=== PATIENT | female | born 1970 | race Hispanic/Latino ===

== ENCOUNTER → 2017-10-12 | Outpatient (CLI) | payer MEDICAID ==
[~2017-10-12] MED LIST: ATOR40TA69 PO; CYCL5TAB PO; DULO30CA2 PO; ENAL5TAB PO; FURO20TA4 PO; METF10004 PO; METO25TA3 PO
== END | disposition home or self-care (01) ==
LOC: SHCH 10:41
PROVIDERS: ATTEND Internal Medicine Cardiovascular Disease
DX: I10 Essential (primary) hypertension (principal); I20.9 Angina pectoris, unspecified
CPT/HCPCS: 93306

== ENCOUNTER 2018-07-04 10:48 | Emergency (ER) | payer SELFPAY ==
[~2018-07-04 10:48] MED LIST changes: +METF-446 PO; -METF10004 PO
[2018-07-04 12:13] LABS: BASOPHILS % (AUTO) 0.5 % (0.0-5.0); EOSINOPHILS % (AUTO) 1.5 % (0.0-8.0); LYMPHOCYTES % (AUTO) 31.8 % (21.0-51.0); MEAN CORPUSCULAR HEMOGLOBIN 27.8 pg (27.0-33.0); MEAN CORPUSCULAR HGB CONC 33.2 g/dL (32.0-36.0); MEAN CORPUSCULAR VOLUME 83.8 fL (79-99); MONOCYTES % (AUTO) 7.8 % (3.0-13.0); NEUTROPHILS % (AUTO) 58.4 % (40.0-77.0); PLATELET COUNT (AUTO) 278 K/uL (130-400); RED BLOOD CELL COUNT(AUTO) 4.77 MIL/uL (4.00-5.50); WHITE BLOOD COUNT (AUTO) 8.4 K/uL (4.8-10.8)
[2018-07-04 12:34] LABS: CREATININE 0.7 mg/dL (0.5-1.5); POTASSIUM 3.8 mmol/L (3.5-5.1)
[2018-07-04 12:38] LABS: ALBUMIN 3.3 g/dL (3.5-5.0); BILIRUBIN,TOTAL 0.4 mg/dL (0.2-1.0)
[2018-07-04] MEDS ORDERED: KETOROLAC TROMETHAMINE 30MG/ML ONE (12:44)
[2018-07-04] MEDS ORDERED: DEXAMETHASONE SOD PHOSPHATE 4 MG/ML 1ML VIAL ONE (13:33)
== END 2018-07-04 14:02 | disposition home or self-care (01) ==
LOC: EDH 10:48
DX: M79.605 Pain in left leg (principal); E11.9 Type 2 diabetes mellitus without complications; I10 Essential (primary) hypertension; I25.10 Atherosclerotic heart disease of native coronary artery without angina pectoris; Z79.84 Long term (current) use of oral hypoglycemic drugs; Z79.899 Other long term (current) drug therapy; Z90.49 Acquired absence of other specified parts of digestive tract; Z98.890 Other specified postprocedural states
CPT/HCPCS: 36415; 72131; 80053; 85025; 85378; 93971; 96374; 96375; 99285; J1100; J1885

== ENCOUNTER 2018-10-06 14:47 | Emergency (ER) | payer SELFPAY ==
[2018-10-06 16:37] LABS: APPEARANCE,URINE Clear (CLEAR); BILIRUBIN,URINE Negative (NEGATIVE); COLOR,URINE Yellow (YELLOW); GLUCOSE, URINE (UA) Negative (NEGATIVE); KETONES,URINE Negative (NEGATIVE); LEUKOCYTE ESTERASE ,URINE Negative (NEGATIVE); NITRATE,URINE Negative (NEGATIVE); OCCULT BLOOD,URINE Negative (NEGATIVE); PH,URINE 5.5 (5.0-8.0); PROTEIN,URINE Negative (NEGATIVE); UROBILINOGEN,URINE 0.2 mg/dL (0.2-1.0)
[2018-10-06 17:14] LABS: BASOPHILS % (AUTO) 0.8 % (0.0-5.0); EOSINOPHILS % (AUTO) 2.5 % (0.0-8.0); HEMATOCRIT 41.6 % (36-48); LYMPHOCYTES % (AUTO) 28.5 % (21.0-51.0); MEAN CORPUSCULAR HEMOGLOBIN 27.4 pg (27.0-33.0); MEAN CORPUSCULAR HGB CONC 32.8 g/dL (32.0-36.0); MEAN CORPUSCULAR VOLUME 83.6 fL (79-99); MONOCYTES % (AUTO) 8.2 % (3.0-13.0); PLATELET COUNT (AUTO) 255 K/uL (130-400); RED BLOOD CELL COUNT(AUTO) 4.97 MIL/uL (4.00-5.50); RED CELL DISTRIBUTION WIDTH 13.7 % (11.0-15.5); WHITE BLOOD COUNT (AUTO) 7.7 K/uL (4.8-10.8)
[2018-10-06 17:24] LABS: CREATININE 0.7 mg/dL (0.5-1.5); POTASSIUM 4.1 mmol/L (3.5-5.1)
[2018-10-06 17:31] LABS: ALBUMIN 3.4 g/dL (3.5-5.0); BILIRUBIN,TOTAL 0.2 mg/dL (0.2-1.0); TOTAL PROTEIN, SERUM 8.3 g/dL (6.0-8.3)
== END 2018-10-06 18:03 | disposition home or self-care (01) ==
LOC: EDH 14:47
DX: R10.11 Right upper quadrant pain (principal); I10 Essential (primary) hypertension; E11.9 Type 2 diabetes mellitus without complications; I25.810 Atherosclerosis of coronary artery bypass graft(s) without angina pectoris; Z90.49 Acquired absence of other specified parts of digestive tract
CPT/HCPCS: 36415; 80053; 81003; 83690; 85025

== ENCOUNTER 2019-03-05 19:14 | Emergency (ER) | payer OTHER ==
[2019-03-05] MEDS ORDERED: ASPIRIN 325 MG TABLET ONE (19:31)
[2019-03-05 20:17] LABS: BASOPHILS % (AUTO) 1.4 % (0.0-5.0); HEMATOCRIT 38.1 % (36-48); LYMPHOCYTES % (AUTO) 31.5 % (21.0-51.0); MEAN CORPUSCULAR HEMOGLOBIN 27.5 pg (27.0-33.0); MEAN CORPUSCULAR HGB CONC 33.2 g/dL (32.0-36.0); MEAN CORPUSCULAR VOLUME 82.8 fL (79-99); MONOCYTES % (AUTO) 6.2 % (3.0-13.0); NEUTROPHILS % (AUTO) 59.9 % (40.0-77.0); NUCLEATED RED BLOOD CELLS 0.1 % (0.0-0.19); PLATELET COUNT (AUTO) 253 K/uL (130-400); RED CELL DISTRIBUTION WIDTH 14.8 % (11.0-15.5); WHITE BLOOD COUNT (AUTO) 10.3 K/uL (4.8-10.8)
[2019-03-05 20:19] LABS: APPEARANCE,URINE Clear (CLEAR); BILIRUBIN,URINE Negative (NEGATIVE); COLOR,URINE Yellow (YELLOW); GLUCOSE, URINE (UA) Negative (NEGATIVE); KETONES,URINE Negative (NEGATIVE); LEUKOCYTE ESTERASE ,URINE Negative (NEGATIVE); NITRATE,URINE Negative (NEGATIVE); OCCULT BLOOD,URINE Negative (NEGATIVE); PH,URINE 6.5 (5.0-8.0); PROTEIN,URINE Negative (NEGATIVE); UROBILINOGEN,URINE 0.2 mg/dL (0.2-1.0)
[2019-03-05 20:26] LABS: CREATININE 0.8 mg/dL (0.5-1.5); INR 0.91 (0.85-1.15); PARTIAL THROMBOPLASTIN TIME 19.4 SEC (26.3-35.5); POTASSIUM 3.6 mmol/L (3.5-5.1); PROTHROMBIN TIME 9.6 SEC (9.6-11.6)
[2019-03-05 20:36] LABS: ALBUMIN 3.2 g/dL (3.5-5.0); BILIRUBIN,TOTAL 0.4 mg/dL (0.2-1.0)
[2019-03-05 20:46] LABS: B-TYPE NATRIURETIC PEPTIDE 57 pg/mL (0-100)
[2019-03-05] MEDS ORDERED: MORPHINE SULFATE 4 MG/1ML SYG ONE (21:51)
[2019-03-05] MEDS ORDERED: ONDANSETRON HCL 4 MG/2 ML VIAL ONE (21:51)
[2019-03-05] MEDS ORDERED: SODIUM CHLORIDE 0.9% 1000ML 1,000 ML IV ONE (21:52)
== END 2019-03-06 00:38 | disposition home or self-care (01) ==
LOC: EDH 19:14
DX: R10.11 Right upper quadrant pain (principal); K76.0 Fatty (change of) liver, not elsewhere classified; E11.9 Type 2 diabetes mellitus without complications; I25.10 Atherosclerotic heart disease of native coronary artery without angina pectoris; I10 Essential (primary) hypertension; Z90.49 Acquired absence of other specified parts of digestive tract
CPT/HCPCS: 36415; 71045; 74176; 80053; 81003; 82550; 83690; 83874; 83880; 84484 ×2; 85025; 85610; 85730; 93005 ×2; 96374; 96375; 99285; J2270; J2405; J7030

== ENCOUNTER 2019-10-11 00:10 | Emergency (ER) | payer OTHER ==
[2019-10-11] MEDS ORDERED: ASPIRIN 325 MG TABLET ONE (00:42)
[2019-10-11 00:50] LABS: POTASSIUM 4.4 mmol/L (3.5-5.1)
[2019-10-11 00:53] LABS: BASOPHILS % (AUTO) 0.4 % (0.0-5.0); EOSINOPHILS % (AUTO) 1.2 % (0.0-8.0); HEMATOCRIT 45.1 % (36-48); MEAN CORPUSCULAR HEMOGLOBIN 27.9 pg (27.0-33.0); MEAN CORPUSCULAR HGB CONC 32.2 g/dL (32.0-36.0); MEAN CORPUSCULAR VOLUME 86.9 fL (79-99); MONOCYTES % (AUTO) 7.1 % (3.0-13.0); NEUTROPHILS % (AUTO) 40.1 % (40.0-77.0); PLATELET COUNT (AUTO) 329 K/uL (130-400); RED BLOOD CELL COUNT(AUTO) 5.19 MIL/uL (4.00-5.50); RED CELL DISTRIBUTION WIDTH 12.7 % (11.0-15.5); WHITE BLOOD COUNT (AUTO) 10.5 K/uL (4.8-10.8)
[2019-10-11 00:56] LABS: ALBUMIN 3.7 g/dL (3.5-5.0); BILIRUBIN,TOTAL 0.2 mg/dL (0.2-1.0); TOTAL PROTEIN, SERUM 7.8 g/dL (6.0-8.3)
[2019-10-11 01:09] LABS: INR 0.91 (0.85-1.15); PROTHROMBIN TIME 9.6 SEC (9.6-11.6)
[2019-10-11 01:20] LABS: B-TYPE NATRIURETIC PEPTIDE 106 pg/mL (0-100)
[2019-10-11] MEDS ORDERED: LORAZEPAM 2 MG/ML 1 ML VIAL ONE (02:21)
== END 2019-10-11 04:28 | disposition home or self-care (01) ==
LOC: EDH 00:10
DX: M54.9 Dorsalgia, unspecified (principal); R07.89 Other chest pain; I25.10 Atherosclerotic heart disease of native coronary artery without angina pectoris; Z90.49 Acquired absence of other specified parts of digestive tract; Z98.890 Other specified postprocedural states; I50.9 Heart failure, unspecified
CPT/HCPCS: 36415; 71045; 80053; 82550; 83880; 84484 ×2; 85025; 85610; 85730; 93005 ×2; 96374; 99285; J2060

== ENCOUNTER 2019-12-19 06:07 | Inpatient (IN) | payer OTHER ==
[~2019-12-19] VITALS: Ht 162.6 cm; Wt 103.6 kg
[2019-12-19 06:55] LABS: BASOPHILS % (AUTO) 0.4 % (0.0-5.0); EOSINOPHILS % (AUTO) 0.8 % (0.0-8.0); HEMATOCRIT 38.1 % (36-48); MEAN CORPUSCULAR HEMOGLOBIN 27.2 pg (27.0-33.0); MONOCYTES % (AUTO) 10.6 % (3.0-13.0); NEUTROPHILS % (AUTO) 78.6 % (40.0-77.0); PLATELET COUNT (AUTO) 238 K/uL (130-400); RED BLOOD CELL COUNT(AUTO) 4.48 MIL/uL (4.00-5.50); RED CELL DISTRIBUTION WIDTH 13.2 % (11.0-15.5)
[2019-12-19] MEDS ORDERED: ACETAMINOPHEN EXTRA STRENGTH 500 MG TABLET ONE (06:55)
[2019-12-19] MEDS ORDERED: CEFTRIAXONE SODIUM 2 GM VIAL ONE (06:55)
[2019-12-19] MEDS ORDERED: SODIUM CHLORIDE 0.9% 1000ML 2,000 ML IV ONE (06:55)
[2019-12-19 07:02] LABS: CARBON DIOXIDE 28 mmol/L (21-32); CHLORIDE 99 mmol/L (101-111); CREATININE 0.9 mg/dL (0.5-1.5); GLOMERULAR FILTR. RATE CALC 70 mL/min (>60); GLUCOSE,RANDOM 157 mg/dL (70-105); POTASSIUM 3.5 mmol/L (3.5-5.1); SODIUM SERUM 135 mmol/L (136-145); UREA NITROGEN, BLOOD 8 mg/dL (7-18)
[2019-12-19 07:10] LABS: APPEARANCE,URINE CLEAR (CLEAR); BILIRUBIN,URINE NEGATIVE (NEGATIVE); COLOR,URINE YELLOW (YELLOW); GLUCOSE, URINE (UA) NEGATIVE (NEGATIVE); KETONES,URINE NEGATIVE (NEGATIVE); LEUKOCYTE ESTERASE ,URINE NEGATIVE (NEGATIVE); NITRATE,URINE NEGATIVE (NEGATIVE); OCCULT BLOOD,URINE NEGATIVE (NEGATIVE); PROTEIN,URINE NEGATIVE (NEGATIVE); UROBILINOGEN,URINE 0.2 mg/dL (0.2-1.0)
[2019-12-19 07:16] LABS: ALANINE AMINOTRANSFERASE 20 U/L (12-78); ALBUMIN 3.2 g/dL (3.5-5.0); ASPARTATE AMINOTRANSFERASE 16 U/L (10-37); BILIRUBIN,TOTAL 0.3 mg/dL (0.2-1.0); CREATINE KINASE, TOTAL 58 U/L (21-232); MYOGLOBIN 43 ng/mL (10-92); TOTAL PROTEIN, SERUM 7.8 g/dL (6.0-8.3); TROPONIN I < 0.04 ng/mL (0.00-0.06)
[2019-12-19 07:19] LABS: INR 0.92 (0.85-1.15); PARTIAL THROMBOPLASTIN TIME 28.1 SEC (26.3-35.5)
[2019-12-19] MEDS ORDERED: METHYLPREDNISOLONE SOD SUCC 125MG/2ML VIAL ONE (07:23)
[2019-12-19] MEDS ORDERED: ONDANSETRON HCL 4 MG/2 ML VIAL IVP PRN (11:00)
[2019-12-19] MEDS ORDERED: SODIUM CHLORIDE 0.9% 1000ML 1,000 ML IV SCH (11:00)
[2019-12-19] MEDS ORDERED: METHYLPREDNISOLONE SOD SUCC 125MG/2ML VIAL IVP SCH (11:00)
[2019-12-19] MEDS ORDERED: FAMOTIDINE 20MG TAB 20 MG TAB ONE (11:38)
[2019-12-19] MEDS ORDERED: SODIUM CHLORIDE 0.9% 1000ML 1,000 ML IV ONE (11:39)
[2019-12-19] MEDS ORDERED: OSELTAMIVIR PHOSPHATE 75 MG CAP ONE ×2 (11:39→23:44)
[2019-12-19] MEDS ORDERED: AZITHROMYCIN 500MG+NS 250ML 250 ML IV ONE (11:55)
--- NOTE | 2019-12-19 13:05 | NUR ---
INITIAL SW met with patient and spouse. Patient lives with spouse, Lee Duran, [phone]. No home services. DME: glucometer (uses insulin). Patient is able to complete ADL's independently and drives. She is presently employed client service supervisor. PCP is Dr. Jeffrey Duran. Pharmacy is [facility] located on [address] in [place]. DCP is home. Addendum: 12/19/19 at 1307 by DRAGAN WOOD SS Amended: Links added. Addendum: 12/19/19 at 1647 by DRAGAN WOOD SS Information above is for another patient. Please disregard.
[2019-12-19] MEDS ORDERED: IPRATROPIUM/ALBUTEROL SULFATE 3 ML SOLUTION IH ONE (13:32)
[2019-12-19] MEDS: IPRATROPIUM/ALBUTEROL SULFATE 3 ML SOLUTION IH SCH ×3 (13:34→21:49)
[2019-12-19] MEDS ORDERED: ACETAMINOPHEN 325 MG TAB ONE (14:54)
[2019-12-19] MEDS ORDERED: METHYLPREDNISOLONE SOD SUCC 40MG/ML 1ML ONE ×2 (15:11→23:43)
[2019-12-19] MEDS ORDERED: INSULIN HUMULIN R 100 UNIT/ML 3ML ONE ×2 (18:07→22:32)
[2019-12-19] MEDS: METHYLPREDNISOLONE SOD SUCC 125MG/2ML VIAL IVP SCH (19:00)
[2019-12-19] MEDS: OSELTAMIVIR PHOSPHATE 75 MG CAP PO SCH (21:00)
[2019-12-20] MEDS: IPRATROPIUM/ALBUTEROL SULFATE 3 ML SOLUTION IH SCH ×6 (02:00→22:39)
[2019-12-20] MEDS: METHYLPREDNISOLONE SOD SUCC 125MG/2ML VIAL IVP SCH ×3 (03:00→19:00)
[2019-12-20 05:02] LABS: HEMOGLOBIN A1C 6.9 % (4.0-6.0)
[2019-12-20] MEDS ORDERED: SODIUM CHLORIDE 0.9% 1000ML 1,000 ML IV ONE (05:09)
[2019-12-20] MEDS ORDERED: IPRATROPIUM/ALBUTEROL SULFATE 3 ML SOLUTION IH ONE ×3 (06:11→13:27)
[2019-12-20 06:39] LABS: HEMATOCRIT 36.6 % (36-48); LYMPHOCYTES % (AUTO) 12.3 % (21.0-51.0); MEAN CORPUSCULAR HEMOGLOBIN 27.4 pg (27.0-33.0); MEAN CORPUSCULAR HGB CONC 31.7 g/dL (32.0-36.0); MEAN CORPUSCULAR VOLUME 86.3 fL (79-99); MONOCYTES % (AUTO) 6.2 % (3.0-13.0); NEUTROPHILS % (AUTO) 80.8 % (40.0-77.0); PLATELET COUNT (AUTO) 243 K/uL (130-400); RED BLOOD CELL COUNT(AUTO) 4.24 MIL/uL (4.00-5.50); RED CELL DISTRIBUTION WIDTH 13.6 % (11.0-15.5); WHITE BLOOD COUNT (AUTO) 7.2 K/uL (4.8-10.8)
[2019-12-20 06:48] LABS: CREATININE 0.7 mg/dL (0.5-1.5); POTASSIUM 3.8 mmol/L (3.5-5.1)
[2019-12-20] MEDS ORDERED: OSELTAMIVIR PHOSPHATE 75 MG CAP ONE ×2 (08:44→20:17)
[2019-12-20] MEDS ORDERED: FAMOTIDINE 20MG TAB 20 MG TAB ONE (08:44)
[2019-12-20] MEDS ORDERED: METHYLPREDNISOLONE SOD SUCC 40MG/ML 1ML ONE ×2 (08:44→20:16)
[2019-12-20] MEDS ORDERED: INSULIN HUMULIN R 100 UNIT/ML 3ML ONE ×3 (08:45→18:48)
[2019-12-20] MEDS: RANITIDINE HCL 15 MG/1 ML PO SCH ×2 (09:00→20:31)
[2019-12-20] MEDS: OSELTAMIVIR PHOSPHATE 75 MG CAP PO SCH ×2 (09:00→20:31)
[2019-12-20] MEDS: AZITHROMYCIN 500MG+NS 250ML 250 ML IV SCH (11:45)
[2019-12-20] MEDS ORDERED: AZITHROMYCIN 500MG+NS 250ML 250 ML IV ONE (12:09)
--- NOTE | 2019-12-20 14:22 | NUR ---
INITIAL ASSESSMENT Patient lives with spouse, Jack Duran, [phone]. No home services or DME. Patient states she does need help with ADL's due to problem with her right arm but is able to drive. PCP is Dr. Jared Valencia at [facility]. Pharmacy is [facility] located in [place]. DCP is home. Patient has no insurance or benefits. She a [place] citizen and has worked in the [place]. Patient was provided with community resources for post hospitalization follow up. Patient was also provided with Good RX card for prescriptions and educated on [facility] $4 medication program and [facility] $5 medication program. Patient is being assisted by [employer] for financial matters. Addendum: 12/20/19 at 1425 by DRAGAN WOOD SS Amended: Links added.
[2019-12-20] MEDS ORDERED: AEC81 PO (20:01)
[2019-12-20] MEDS ORDERED: ATOR40TA69 PO (20:01)
[2019-12-20] MEDS ORDERED: NITR0.4T50 SL (20:01)
[2019-12-20] MEDS ORDERED: ACETAMINOPHEN 325 MG TAB ONE (20:16)
--- NOTE | 2019-12-20 23:25 | NUR ---
PATIENT ARRIVED TO ROOM. ORIENTATED TO ROOM AND CALL GILBERT, PATIENT REQUESTED TO SHOWER BEFORE MONITOR PUT IN PLACE. DOOR CORE ASSEMBLER NOTIFIED OF PATIENT'S ARRIVAL. PATIENT DENIES ANY COMPLAINTS OF PAIN OR DISCOMFORT. CALL GILBERT WITHIN REACH.
[2019-12-20 23:32] VITALS: BP 137/66
[2019-12-20 23:59] VITALS: BP 134/67
[2019-12-21] MEDS ORDERED: SODIUM CHLORIDE 3% FOR INHALATION 4 ML/AMP VIAL.NEB IH ONE (01:47)
[2019-12-21] MEDS: IPRATROPIUM/ALBUTEROL SULFATE 3 ML SOLUTION IH SCH ×6 (01:54→21:40)
[2019-12-21] MEDS: METHYLPREDNISOLONE SOD SUCC 125MG/2ML VIAL IVP SCH ×2 (03:13→12:24)
[2019-12-21] MEDS ORDERED: GLUCAGON 1MG KIT 1 MG ML IM PRN (03:30)
[2019-12-21] MEDS ORDERED: DEXTROSE 50%-WATER 50 ML DISP.SYRIN IV PRN (03:30)
[2019-12-21 03:59] VITALS: BP 109/51
[2019-12-21] MEDS: INSULIN R PO SS1 SQ SCH ×4 (06:35→21:49)
[2019-12-21 08:01] VITALS: BP 119/74
--- NOTE | 2019-12-21 08:10 | NUR ---
ENCOUNTERED PATIENT LAYING ON BED IN A SEMI-CARVAJAL'S POSITION WITH O2 AT 2L PER NASAL CANNULA. SHE VOICED THAT SHE ONLY GETS SHORT OF BREATH ONCE IN A WHILE AND MOST ESPECIALLY WHEN SHE AMBULATES. FULL ASSESSMENT DONE. PATIENT IS KEPT ON DROPLET ISOLATION. PLAN OF CARE DISCUSSED WITH PATIENT. CALL LIGHT WITHIN REACH. INSTRUCTED TO CALL FOR ASSISTANCE.
[2019-12-21] MEDS: RANITIDINE HCL 15 MG/1 ML PO SCH ×2 (09:22→21:49)
[2019-12-21] MEDS: OSELTAMIVIR PHOSPHATE 75 MG CAP PO SCH ×2 (09:22→21:49)
[2019-12-21 12:05] VITALS: BP 124/71
[2019-12-21] MEDS: AZITHROMYCIN 500MG+NS 250ML 250 ML IV SCH (12:21)
[2019-12-21] MEDS: GUAIFENESIN-DM 200/20 MG 10 ML PO SCH ×2 (12:21→17:31)
[2019-12-21] MEDS: FUROSEMIDE 10 MG/ML 2ML VIAL IV SCH (15:37)
[2019-12-21 16:33] VITALS: BP 117/68
[2019-12-21 19:46] VITALS: BP 118/70
[2019-12-21] MEDS: METHYLPREDNISOLONE SOD SUCC 40MG/ML 1ML IVP SCH (21:48)
[2019-12-21 23:41] VITALS: BP 146/79
[2019-12-22] MEDS: GUAIFENESIN-DM 200/20 MG 10 ML PO SCH ×4 (00:02→16:48)
[2019-12-22] MEDS: IPRATROPIUM/ALBUTEROL SULFATE 3 ML SOLUTION IH SCH ×6 (01:19→21:43)
[2019-12-22 03:53] LABS: BASOPHILS % (AUTO) 0.1 % (0.0-5.0); HEMATOCRIT 37.3 % (36-48); LYMPHOCYTES % (AUTO) 11.4 % (21.0-51.0); MEAN CORPUSCULAR HEMOGLOBIN 27.8 pg (27.0-33.0); MEAN CORPUSCULAR HGB CONC 31.6 g/dL (32.0-36.0); MONOCYTES % (AUTO) 3.3 % (3.0-13.0); NEUTROPHILS % (AUTO) 84.5 % (40.0-77.0); PLATELET COUNT (AUTO) 264 K/uL (130-400); RED BLOOD CELL COUNT(AUTO) 4.24 MIL/uL (4.00-5.50); WHITE BLOOD COUNT (AUTO) 10.8 K/uL (4.8-10.8)
[2019-12-22 04:00] VITALS: BP 109/75
[2019-12-22] MEDS: FUROSEMIDE 10 MG/ML 2ML VIAL IV SCH ×2 (06:21→16:48)
[2019-12-22] MEDS: INSULIN R PO SS1 SQ SCH ×4 (06:22→21:44)
[2019-12-22 07:00] VITALS: BP 119/65
[2019-12-22] MEDS: METHYLPREDNISOLONE SOD SUCC 40MG/ML 1ML IVP SCH (08:56)
[2019-12-22] MEDS: OSELTAMIVIR PHOSPHATE 75 MG CAP PO SCH ×2 (08:56→21:23)
[2019-12-22] MEDS: RANITIDINE HCL 15 MG/1 ML PO SCH ×2 (08:56→21:23)
[2019-12-22 11:00] VITALS: BP 122/62
[2019-12-22] MEDS: AZITHROMYCIN 500MG+NS 250ML 250 ML IV SCH (11:19)
[2019-12-22] MEDS: CEFTRIAXONE SODIUM 500 MG VIAL IV SCH (11:38)
[2019-12-22 15:55] VITALS: BP 118/51
--- NOTE | 2019-12-22 18:50 | NUR ---
DR. Gan AND DR. RDZ SAW PATIENT TODAY. PATIENT VERBALIZED SHE FEELS BETTER BUT I INFORMED PULMO THAT SHE IS STILL WHEEZING. MD INFORMED PATIENT THAT SHE WILL HAVE TO STAY IN HOSPITAL FOR A COUPLE MORE DAYS. HE PLANS TO INCREASE PATIENT'S SOLUMEDROL.
[2019-12-22 19:30] VITALS: BP 115/84
[2019-12-22] MEDS: METHYLPREDNISOLONE SOD SUCC 125MG/2ML VIAL IVP SCH (21:23)
[2019-12-22] MEDS: ACETAMINOPHEN 325 MG TAB PO PRN (21:46)
[2019-12-23] VITALS (7 sets, daily range): BP systolic 105–140; BP diastolic 54–74
[2019-12-23] MEDS: IPRATROPIUM/ALBUTEROL SULFATE 3 ML SOLUTION IH SCH ×6 (01:20→22:11)
[2019-12-23 04:37] LABS: BASOPHILS % (AUTO) 0.1 % (0.0-5.0); HEMATOCRIT 39.9 % (36-48); LYMPHOCYTES % (AUTO) 12.2 % (21.0-51.0); MEAN CORPUSCULAR HEMOGLOBIN 27.5 pg (27.0-33.0); MEAN CORPUSCULAR HGB CONC 31.8 g/dL (32.0-36.0); MEAN CORPUSCULAR VOLUME 86.4 fL (79-99); MONOCYTES % (AUTO) 1.8 % (3.0-13.0); NEUTROPHILS % (AUTO) 85.2 % (40.0-77.0); PLATELET COUNT (AUTO) 286 K/uL (130-400); RED BLOOD CELL COUNT(AUTO) 4.62 MIL/uL (4.00-5.50); RED CELL DISTRIBUTION WIDTH 13.6 % (11.0-15.5)
[2019-12-23 04:58] LABS: CREATININE 0.9 mg/dL (0.5-1.5)
[2019-12-23] MEDS: FUROSEMIDE 10 MG/ML 2ML VIAL IV SCH ×2 (06:56→17:12)
[2019-12-23] MEDS: GUAIFENESIN-DM 200/20 MG 10 ML PO SCH ×4 (06:56→17:11)
[2019-12-23] MEDS: INSULIN R PO SS1 SQ SCH ×4 (07:03→23:23)
--- NOTE | 2019-12-23 09:00 | NUR ---
AM ASSESSMENT PT LAYING IN BED, HOB ELEVATED 30 DEGREES, RESTING. A/O X 3. NO SOB. NO DISTRESS NOTED. O2 NC @ 2L REMOVED BY PT. SINCE NC REMOVED PT HAS BEEN REMOVED BEEN ON RA. DENIES CHEST PAIN OR DISCOMFORT. DENIES PALPITATIONS. TELE: SR. DENIES N/V AND/OR DIARRHEA. RT HAND/ARM SIDED WEAKNESS. UP AD BONITA. INSTRUCTED TO CALL FOR ASSISTANCE. CALL VLADIMIR W/IN REACH.
[2019-12-23] MEDS: AZITHROMYCIN 500MG+NS 250ML 250 ML IV SCH (09:59)
[2019-12-23] MEDS: OSELTAMIVIR PHOSPHATE 75 MG CAP PO SCH ×2 (09:59→21:05)
[2019-12-23] MEDS: METHYLPREDNISOLONE SOD SUCC 125MG/2ML VIAL IVP SCH ×2 (09:59→21:05)
[2019-12-23] MEDS: RANITIDINE HCL 15 MG/1 ML PO SCH ×2 (09:59→21:05)
[2019-12-23] MEDS: ACETAMINOPHEN 325 MG TAB PO PRN ×2 (10:14→21:11)
[2019-12-23] MEDS: CEFTRIAXONE SODIUM 500 MG VIAL IV SCH (10:21)
[2019-12-23] MEDS: SODIUM CHLORIDE 3% FOR INHALATION 4 ML/AMP VIAL.NEB IH SCH (13:37)
[2019-12-24] MEDS: GUAIFENESIN-DM 200/20 MG 10 ML PO SCH ×5 (00:52→23:15)
[2019-12-24] MEDS: IPRATROPIUM/ALBUTEROL SULFATE 3 ML SOLUTION IH SCH ×5 (02:29→23:09)
[2019-12-24 03:48] VITALS: BP 112/61
[2019-12-24 04:27] LABS: BASOPHILS % (AUTO) 0.2 % (0.0-5.0); HEMATOCRIT 41.2 % (36-48); LYMPHOCYTES % (AUTO) 15.4 % (21.0-51.0); MEAN CORPUSCULAR HEMOGLOBIN 27.6 pg (27.0-33.0); MEAN CORPUSCULAR HGB CONC 31.8 g/dL (32.0-36.0); MEAN CORPUSCULAR VOLUME 86.7 fL (79-99); MONOCYTES % (AUTO) 3.4 % (3.0-13.0); NEUTROPHILS % (AUTO) 78.9 % (40.0-77.0); PLATELET COUNT (AUTO) 301 K/uL (130-400); RED BLOOD CELL COUNT(AUTO) 4.75 MIL/uL (4.00-5.50); RED CELL DISTRIBUTION WIDTH 13.4 % (11.0-15.5)
[2019-12-24] MEDS: FUROSEMIDE 10 MG/ML 2ML VIAL IV SCH ×2 (05:40→17:23)
[2019-12-24] MEDS: INSULIN R PO SS1 SQ SCH ×4 (06:24→23:15)
[2019-12-24] MEDS: SODIUM CHLORIDE 3% FOR INHALATION 4 ML/AMP VIAL.NEB IH SCH (07:29)
[2019-12-24 07:30] VITALS: BP 111/62
[2019-12-24] MEDS: OSELTAMIVIR PHOSPHATE 75 MG CAP PO SCH (10:43)
[2019-12-24] MEDS: RANITIDINE HCL 15 MG/1 ML PO SCH ×2 (10:43→20:12)
[2019-12-24] MEDS: METHYLPREDNISOLONE SOD SUCC 125MG/2ML VIAL IVP SCH (10:44)
[2019-12-24] MEDS: AZITHROMYCIN 500MG+NS 250ML 250 ML IV SCH (10:44)
[2019-12-24] MEDS ORDERED: CEFTRIAXONE SODIUM 1 GM IV SCH (10:49)
[2019-12-24 11:37] VITALS: BP 138/73
[2019-12-24] MEDS ORDERED: PREDNISONE 20 MG TABLET PO SCH (14:55)
[2019-12-24 15:50] VITALS: BP 125/68
[2019-12-24] MEDS ORDERED: IPRATROPIUM/ALBUTEROL SULFATE 3 ML SOLUTION IH SCH (18:00)
[2019-12-24 19:51] VITALS: BP 128/75
[2019-12-24 23:44] VITALS: BP 114/64
[2019-12-25 03:39] VITALS: BP 118/64
[2019-12-25 03:43] LABS: BASOPHILS % (AUTO) 0.2 % (0.0-5.0); HEMATOCRIT 41.8 % (36-48); LYMPHOCYTES % (AUTO) 17.2 % (21.0-51.0); MEAN CORPUSCULAR HEMOGLOBIN 27.7 pg (27.0-33.0); MEAN CORPUSCULAR HGB CONC 32.3 g/dL (32.0-36.0); MEAN CORPUSCULAR VOLUME 85.7 fL (79-99); MONOCYTES % (AUTO) 4.9 % (3.0-13.0); NEUTROPHILS % (AUTO) 75.8 % (40.0-77.0); PLATELET COUNT (AUTO) 343 K/uL (130-400); RED BLOOD CELL COUNT(AUTO) 4.88 MIL/uL (4.00-5.50); RED CELL DISTRIBUTION WIDTH 13.3 % (11.0-15.5); WHITE BLOOD COUNT (AUTO) 16.2 K/uL (4.8-10.8)
[2019-12-25 04:03] LABS: ALBUMIN 3.1 g/dL (3.5-5.0); BILIRUBIN,TOTAL 0.3 mg/dL (0.2-1.0); CREATININE 0.8 mg/dL (0.5-1.5); POTASSIUM 4.2 mmol/L (3.5-5.1); TOTAL PROTEIN, SERUM 7.7 g/dL (6.0-8.3)
[2019-12-25] MEDS: INSULIN R PO SS1 SQ SCH ×2 (06:28→11:30)
[2019-12-25] MEDS: FUROSEMIDE 10 MG/ML 2ML VIAL IV SCH (06:28)
[2019-12-25] MEDS: GUAIFENESIN-DM 200/20 MG 10 ML PO SCH ×2 (06:29→11:15)
[2019-12-25] MEDS: IPRATROPIUM/ALBUTEROL SULFATE 3 ML SOLUTION IH SCH ×2 (06:51→11:13)
[2019-12-25 07:14] VITALS: BP 114/62
[2019-12-25] MEDS: RANITIDINE HCL 15 MG/1 ML PO SCH (07:43)
--- NOTE | 2019-12-25 07:45 | NUR ---
ASSESSMENT PT IS AAOX3 DENIES CP DENIES SOB DENIES NV NO COMPLAINTS RESTING IN BED. BREATHING PATTERN IS EVEN AND UNLABORED. NO VISIBLE SIGNS OF DISTRESS NOTED, CALL LIGHT WITHIN REACH.
[2019-12-25] MEDS ORDERED: AZITHROMYCIN 250 MG TABLET PO SCH ×2 (09:00→12:00)
[2019-12-25 11:39] VITALS: BP 113/71
[2019-12-25] MEDS ORDERED: ADV500 IH (13:38)
[2019-12-25] MEDS ORDERED: PRED20TA3 PO (13:43)
[2019-12-25] MEDS ORDERED: AZIT250T9 PO (13:43)
[2019-12-25] MEDS ORDERED: OSEL75 PO (13:58)
--- NOTE | 2019-12-25 14:46 | NUR ---
RD NOTIFICATION RD CONSULTS DUE TO LOS X 6. PT IS TOLERATING CURRENT DIET. LABS AND MEDS REVIEWED. NO COMPLAINTS OF N/V/C/D. LBM: 12/24. SKIN IS INTACT. D/C PLANNING. RD RECOMMENDS TO CONTINUE CURRENT DIET. Addendum: 12/25/19 at [address] Amended: Links added.
--- NOTE | 2019-12-25 15:20 | NUR ---
DISCHARGE PT VERBALIZES DC INSTRUCTIONS UNDERSTANDING AGREE TO TAKE MEDICATIONS ORDERED AGREE TO FOLLOW UP WITH ALL MD ORDERED, PIV REMOVED CATH TIP INTACT TELE PACK REMOVED. AWAITING RIDE.
== END 2019-12-25 16:03 | disposition home or self-care (01) | DRG 291 ==
LOC: EDH 06:07 → EDHIP 06:08 → OBSVTOIN 06:08 → 2DH 12-20 22:54
PROVIDERS: ADMIT Internal Medicine; ATTEND Internal Medicine
PROC: 5A09357 Assistance with Respiratory Ventilation, Less than 24 Consecutive Hours, Continuous Positive Airway Pressure (ICD-10-PCS; principal; 2019-12-19)
PROC: 5A09357 Assistance with Respiratory Ventilation, Less than 24 Consecutive Hours, Continuous Positive Airway Pressure (ICD-10-PCS; 2019-12-20)
PROC: 5A09357 Assistance with Respiratory Ventilation, Less than 24 Consecutive Hours, Continuous Positive Airway Pressure (ICD-10-PCS; 2019-12-21)
PROC: 5A09357 Assistance with Respiratory Ventilation, Less than 24 Consecutive Hours, Continuous Positive Airway Pressure (ICD-10-PCS; 2019-12-22)
PROC: 5A09357 Assistance with Respiratory Ventilation, Less than 24 Consecutive Hours, Continuous Positive Airway Pressure (ICD-10-PCS; 2019-12-24)
DX: I11.0 Hypertensive heart disease with heart failure (principal); J18.9 Pneumonia, unspecified organism; J45.901 Unspecified asthma with (acute) exacerbation; J44.0 Chronic obstructive pulmonary disease with (acute) lower respiratory infection; Z68.41 Body mass index [BMI] 40.0-44.9, adult; I50.23 Acute on chronic systolic (congestive) heart failure; E11.65 Type 2 diabetes mellitus with hyperglycemia; I25.10 Atherosclerotic heart disease of native coronary artery without angina pectoris; J11.1 Influenza due to unidentified influenza virus with other respiratory manifestations; E66.9 Obesity, unspecified; T38.0X5A Adverse effect of glucocorticoids and synthetic analogues, initial encounter; Y92.89 Other specified places as the place of occurrence of the external cause; Z83.3 Family history of diabetes mellitus; Z82.5 Family history of asthma and other chronic lower respiratory diseases; Z82.3 Family history of stroke; Z80.9 Family history of malignant neoplasm, unspecified; Z82.49 Family history of ischemic heart disease and other diseases of the circulatory system
CPT/HCPCS: 36415; 71045; 80048; 80053; 81003; 82550; 82948; 83036; 83605; 83874; 83880; 84145; 84484; 85025; 85610; 85730; 87040; 87071; 87088; 87205; 87449; 87804; 93005; 93970; 94640; 94660; 94664; G0378; J0456; J0696; J1815; J1940; J2920; J2930; J7030

== ENCOUNTER 2020-01-23 09:30 | Emergency (ER) | payer OTHER ==
[~2020-01-23 09:30] MED LIST changes: +ADV500 IH; +AEC81 PO; +AZIT250T9 PO; +NITR0.4T50 SL; +OSEL75 PO; +PRED20TA3 PO
[2020-01-23] MEDS ORDERED: ASPIRIN 325 MG TABLET ONE (10:30)
[2020-01-23 10:38] LABS: BASOPHILS % (AUTO) 0.4 % (0.0-5.0); EOSINOPHILS % (AUTO) 1.3 % (0.0-8.0); LYMPHOCYTES % (AUTO) 29.1 % (21.0-51.0); MEAN CORPUSCULAR HEMOGLOBIN 28.7 pg (27.0-33.0); MEAN CORPUSCULAR HGB CONC 33.2 g/dL (32.0-36.0); MEAN CORPUSCULAR VOLUME 86.5 fL (79-99); MONOCYTES % (AUTO) 6.6 % (3.0-13.0); NEUTROPHILS % (AUTO) 61.6 % (40.0-77.0); PLATELET COUNT (AUTO) 341 K/uL (130-400); RED BLOOD CELL COUNT(AUTO) 4.74 MIL/uL (4.00-5.50); RED CELL DISTRIBUTION WIDTH 13.6 % (11.0-15.5); WHITE BLOOD COUNT (AUTO) 9.1 K/uL (4.8-10.8)
[2020-01-23 10:48] LABS: CREATININE 0.8 mg/dL (0.5-1.5); POTASSIUM 4.1 mmol/L (3.5-5.1)
[2020-01-23 10:49] LABS: INR 0.89 (0.85-1.15); PROTHROMBIN TIME 9.7 SEC (9.6-11.6)
[2020-01-23] MEDS ORDERED: DEXAMETHASONE SOD PHOSPHATE 10MG/ML 1ML VIAL ONE (10:50)
[2020-01-23 10:54] LABS: ALBUMIN 3.2 g/dL (3.5-5.0); BILIRUBIN,TOTAL 0.3 mg/dL (0.2-1.0); TOTAL PROTEIN, SERUM 7.4 g/dL (6.0-8.3)
[2020-01-23 11:00] LABS: B-TYPE NATRIURETIC PEPTIDE 173 pg/mL (0-100)
== END 2020-01-23 14:22 | disposition home or self-care (01) ==
LOC: EDH 09:30
DX: G51.0 Bell's palsy (principal); R07.89 Other chest pain; J45.909 Unspecified asthma, uncomplicated; I11.0 Hypertensive heart disease with heart failure; I50.9 Heart failure, unspecified; E11.9 Type 2 diabetes mellitus without complications; I25.10 Atherosclerotic heart disease of native coronary artery without angina pectoris; Z98.890 Other specified postprocedural states; Z90.49 Acquired absence of other specified parts of digestive tract
CPT/HCPCS: 36415; 70450; 71045; 80053; 82550; 82948; 83880; 84484 ×2; 85025; 85610; 85730; 93005 ×2; 96374; 99285; J1100

== ENCOUNTER 2021-05-14 09:29 | Emergency (ER) | payer SELFPAY ==
[~2021-05-14] VITALS: Ht 162.6 cm; Wt 104.3 kg
[~2021-05-14 09:29] MED LIST changes: -ENAL5TAB PO; +ENAL5TAB17 PO
[2021-05-14 09:31] VITALS: BP 158/79
[2021-05-14] MEDS ORDERED: IPRATROPIUM/ALBUTEROL SULFATE 3 ML SOLUTION IH ONE (10:00)
[2021-05-14] MEDS ORDERED: SOLU-MEDROL 125MG VIAL IVP ONE (10:00)
[2021-05-14 10:03] LABS: BASOPHILS % (AUTO) 0.9 % (0.0-5.0); EOSINOPHILS % (AUTO) 1.5 % (0.0-8.0); HEMATOCRIT 46.3 % (36-48); LYMPHOCYTES % (AUTO) 32.3 % (21.0-51.0); MEAN CORPUSCULAR HEMOGLOBIN 28.1 pg (27.0-33.0); MEAN CORPUSCULAR VOLUME 85.1 fL (79-99); MONOCYTES % (AUTO) 10.6 % (3.0-13.0); PLATELET COUNT (AUTO) 285 K/uL (130-400); RED BLOOD CELL COUNT(AUTO) 5.44 MIL/uL (4.00-5.50); RED CELL DISTRIBUTION WIDTH 13.2 % (11.0-15.5); WHITE BLOOD COUNT (AUTO) 10.3 K/uL (4.8-10.8)
[2021-05-14 10:13] LABS: INR 0.97 (0.85-1.15); PROTHROMBIN TIME 10.6 SEC (9.6-11.6)
[2021-05-14 10:14] LABS: PARTIAL THROMBOPLASTIN TIME 23.9 SEC (26.3-35.5)
[2021-05-14 10:16] LABS: CREATININE 0.9 mg/dL (0.5-1.5); POTASSIUM 3.6 mmol/L (3.5-5.1)
[2021-05-14 10:21] LABS: ALBUMIN 3.9 g/dL (3.5-5.0); BILIRUBIN,TOTAL 0.4 mg/dL (0.2-1.0); TOTAL PROTEIN, SERUM 8.9 g/dL (6.0-8.3)
[2021-05-14] MEDS ORDERED: DOXY100C2 PO (11:27)
[2021-05-14] MEDS ORDERED: PRED20TA3 PO (11:27)
== END 2021-05-14 11:55 | disposition home or self-care (01) ==
LOC: EDH 09:29
DX: J45.909 Unspecified asthma, uncomplicated (principal); I10 Essential (primary) hypertension; I25.10 Atherosclerotic heart disease of native coronary artery without angina pectoris; E11.9 Type 2 diabetes mellitus without complications; Z98.51 Tubal ligation status; Z79.84 Long term (current) use of oral hypoglycemic drugs; Z79.82 Long term (current) use of aspirin; Z79.899 Other long term (current) drug therapy; Z20.822 Contact with and (suspected) exposure to COVID-19
CPT/HCPCS: 36415; 71045; 80053; 82550; 83605; 84484; 85025; 85610; 85730; 87040 ×2; 87635; 87804 ×2; 93005; 94640; 96374; 99285; C9803; J2930

== ENCOUNTER 2022-05-03 15:36 | Emergency (ER) | payer OTHER ==
[~2022-05-03] VITALS: Ht 162.6 cm; Wt 106.1 kg
[~2022-05-03 15:36] MED LIST changes: +DOXY100C5 PO
[2022-05-03 17:04] LABS: BASOPHILS % (AUTO) 0.4 % (0.0-5.0); EOSINOPHILS % (AUTO) 1.1 % (0.0-8.0); HEMATOCRIT 42.1 % (36-48); LYMPHOCYTES % (AUTO) 31.4 % (21.0-51.0); MEAN CORPUSCULAR HEMOGLOBIN 28.1 pg (27.0-33.0); MEAN CORPUSCULAR VOLUME 85.2 fL (79-99); MONOCYTES % (AUTO) 6.6 % (3.0-13.0); NEUTROPHILS % (AUTO) 59.8 % (40.0-77.0); PLATELET COUNT (AUTO) 242 K/uL (130-400); RED BLOOD CELL COUNT(AUTO) 4.94 MIL/uL (4.00-5.50); RED CELL DISTRIBUTION WIDTH 13.1 % (11.0-15.5); WHITE BLOOD COUNT (AUTO) 12.9 K/uL (4.8-10.8)
[2022-05-03 17:20] LABS: CREATININE 0.8 mg/dL (0.5-1.5); POTASSIUM 4.2 mmol/L (3.5-5.1)
[2022-05-03 17:27] LABS: ALBUMIN 3.1 g/dL (3.5-5.0); TOTAL PROTEIN, SERUM 7.4 g/dL (6.0-8.3)
[2022-05-03 17:27] LABS: AMPHET/METH SCREEN,URINE NEGATIVE (NEGATIVE); BARBITURATE SCREEN, URINE NEGATIVE (NEGATIVE); BENZODIAZEPINES SCREEN,URINE NEGATIVE (NEGATIVE); CANNABINOID SCREEN,URINE NEGATIVE (NEGATIVE); COCAINE SCREEN,URINE NEGATIVE (NEGATIVE); OPIATE SCREEN,URINE NEGATIVE (NEGATIVE); PHENCYCLIDINE SCREEN,URINE NEGATIVE (NEGATIVE)
[2022-05-03 17:31] VITALS: BP 144/86
== END 2022-05-03 18:30 | disposition home or self-care (01) ==
LOC: EDH 15:54
DX: F41.9 Anxiety disorder, unspecified (principal); M79.605 Pain in left leg; R07.89 Other chest pain; M79.602 Pain in left arm; I11.9 Hypertensive heart disease without heart failure; E11.9 Type 2 diabetes mellitus without complications; E78.00 Pure hypercholesterolemia, unspecified; I25.10 Atherosclerotic heart disease of native coronary artery without angina pectoris; Z79.51 Long term (current) use of inhaled steroids; Z79.52 Long term (current) use of systemic steroids; Z79.82 Long term (current) use of aspirin; Z79.84 Long term (current) use of oral hypoglycemic drugs; Z79.899 Other long term (current) drug therapy
CPT/HCPCS: 36415; 70450; 80053; 80305; 82550; 84484; 85025; 93005

== ENCOUNTER 2022-10-03 01:21 | Emergency (ER) | payer OTHER ==
[~2022-10-03] VITALS: Ht 162.6 cm; Wt 102.5 kg
[2022-10-03] MEDS ORDERED: LIDOCAINE HCL 2% VISCOUS 15 ML UDCUP ONE (02:49)
[2022-10-03 02:52] LABS: BASOPHILS % (AUTO) 0.4 % (0.0-5.0); EOSINOPHILS % (AUTO) 1.2 % (0.0-8.0); HEMATOCRIT 41.7 % (36-48); LYMPHOCYTES % (AUTO) 41.6 % (21.0-51.0); MEAN CORPUSCULAR HEMOGLOBIN 27.8 pg (27.0-33.0); MEAN CORPUSCULAR HGB CONC 33.3 g/dL (32.0-36.0); MEAN CORPUSCULAR VOLUME 83.4 fL (79-99); MONOCYTES % (AUTO) 6.6 % (3.0-13.0); NEUTROPHILS % (AUTO) 49.8 % (40.0-77.0); PLATELET COUNT (AUTO) 240 K/uL (130-400); RED CELL DISTRIBUTION WIDTH 12.2 % (11.0-15.5); WHITE BLOOD COUNT (AUTO) 10.1 K/uL (4.8-10.8)
[2022-10-03 03:00] LABS: CREATININE 0.9 mg/dL (0.5-1.5); POTASSIUM 3.9 mmol/L (3.5-5.1)
[2022-10-03 03:01] LABS: APPEARANCE,URINE CLEAR (CLEAR); BILIRUBIN,URINE NEGATIVE (NEGATIVE); COLOR,URINE COLORLESS (YELLOW); GLUCOSE, URINE (UA) >=1000 mg/dL (NEGATIVE); KETONES,URINE NEGATIVE (NEGATIVE); LEUKOCYTE ESTERASE ,URINE NEGATIVE Leu/uL (NEGATIVE); NITRATE,URINE NEGATIVE (NEGATIVE); OCCULT BLOOD,URINE NEGATIVE (NEGATIVE); PROTEIN,URINE NEGATIVE (NEGATIVE); UROBILINOGEN,URINE 0.2 mg/dL (0.2-1.0)
[2022-10-03 03:04] LABS: ALBUMIN 3.5 g/dL (3.5-5.0); TOTAL PROTEIN, SERUM 7.5 g/dL (6.0-8.3)
[2022-10-03 03:06] LABS: RBC,URINE 0-1 /HPF (0-1); SQUAMOUS EPITHELIAL CELL,UR RARE /HPF (0-2); WBC,URINE 0-1 /HPF (0-1)
[2022-10-03] MEDS ORDERED: IOHEXOL 350 MG/ML 100ML INFUS..BTL IV ONE (03:55)
[2022-10-03 04:00] VITALS: BP 102/61
== END 2022-10-03 06:14 | disposition home or self-care (01) ==
LOC: EDH 01:21
DX: N81.4 Uterovaginal prolapse, unspecified (principal); E11.9 Type 2 diabetes mellitus without complications; E78.00 Pure hypercholesterolemia, unspecified; I10 Essential (primary) hypertension; Z79.899 Other long term (current) drug therapy; Z79.82 Long term (current) use of aspirin; Z79.84 Long term (current) use of oral hypoglycemic drugs; Z90.89 Acquired absence of other organs; Z90.49 Acquired absence of other specified parts of digestive tract; Z98.890 Other specified postprocedural states
CPT/HCPCS: 99285; 74176; 84484; 80053; 85025; 81001; 36415; 93005; Q9967

== ENCOUNTER → 2022-12-06 | Outpatient (CLI) | payer MEDICAID ==
[~2022-12-06] MED LIST changes: +ENAL-87 PO; -ENAL5TAB17 PO
[2022-12-06 12:48] LABS: BASOPHILS % (AUTO) 0.5 % (0.0-5.0); EOSINOPHILS % (AUTO) 1.3 % (0.0-8.0); HEMATOCRIT 44.6 % (36-48); LYMPHOCYTES % (AUTO) 35.8 % (21.0-51.0); MEAN CORPUSCULAR HEMOGLOBIN 28.8 pg (27.0-33.0); MEAN CORPUSCULAR HGB CONC 33.2 g/dL (32.0-36.0); MEAN CORPUSCULAR VOLUME 86.8 fL (79-99); MONOCYTES % (AUTO) 7.3 % (3.0-13.0); NEUTROPHILS % (AUTO) 54.9 % (40.0-77.0); PLATELET COUNT (AUTO) 269 K/uL (130-400); RED BLOOD CELL COUNT(AUTO) 5.14 MIL/uL (4.00-5.50); RED CELL DISTRIBUTION WIDTH 12.8 % (11.0-15.5); WHITE BLOOD COUNT (AUTO) 9.2 K/uL (4.8-10.8)
[2022-12-06 13:02] LABS: ALBUMIN 3.9 g/dL (3.5-5.0); CREATININE 0.8 mg/dL (0.5-1.5); POTASSIUM 3.9 mmol/L (3.5-5.1); TOTAL PROTEIN, SERUM 8.4 g/dL (6.0-8.3)
== END | disposition home or self-care (01) ==
LOC: LAB 09:33
PROVIDERS: ATTEND Internal Medicine Cardiovascular Disease
DX: E78.5 Hyperlipidemia, unspecified (principal)
CPT/HCPCS: 36415; 80053; 80061; 85025

== ENCOUNTER → 2022-12-12 | Outpatient (CLI) | payer MEDICAID | END | disposition home or self-care (01) | LOC: SHCH 14:35 | PROVIDERS: ATTEND Internal Medicine Cardiovascular Disease | DX: I51.7 Cardiomegaly (principal); R07.9 Chest pain, unspecified | CPT/HCPCS: 93306 ==

== ENCOUNTER → 2023-01-03 | Outpatient (CLI) | payer MEDICAID ==
[~2023-01-03] MED LIST changes: +REGADENOSON 0.4 MG/5 ML PF SYG IVP ONE
== END | disposition home or self-care (01) ==
LOC: SHCH 08:55
PROVIDERS: ATTEND Internal Medicine Cardiovascular Disease
DX: I51.7 Cardiomegaly (principal); I48.91 Unspecified atrial fibrillation; I49.3 Ventricular premature depolarization; R07.9 Chest pain, unspecified
CPT/HCPCS: 78452; 96374; 93017; J2785; A9500 ×2

== ENCOUNTER → 2024-09-19 | Outpatient (CLI) | payer MEDICAID ==
[~2024-09-19] MED LIST changes: -CYCL5TAB PO; +CYCL5TAB3 PO; -REGADENOSON 0.4 MG/5 ML PF SYG IVP ONE
--- NOTE | 2024-09-20 01:01 | HMCSR ---
APPROVED REPORT EXAM: Two-dimensional and M-mode echocardiogram with Doppler and color Doppler. INDICATION ICD: Heart failure, unspecified I50.9 2D Dimensions RVDd3.7 cmLVEF(%)27.8 (>50%)LVED Vol(simp.)221.0 mL IVSd1.1 (0.7-1.1cm)FS(%)13 %LVES Vol(simp.)151.0 mL LVDd6.0 (3.8-5.6cm)LA (2D)4.7 (1.6-4.0cm)LVEF(%, simp.)32 % PWd1.2 (0.7-1.1cm)Ao Root(2D)2.9 (2.0-3.7cm)LA ESV INDEX (4CH)42.60 mL/m2 IVSs1.2 cmLVOT diam2.9 (1.8-2.4cm)LA ESV INDEX (2CH)55.40 mL/m2 LVDs5.2 (2.5-4.0cm)LA ESV INDEX (BP)51.50 mL/m2 PWs1.6 cm M-Mode Dimensions EPSS2.1 cm LA (MM)3.6 (1.6-4.0cm) Ao Root(MM)3.2 (2.0-3.7cm) Aortic Valve AoV VTI0.2 mAo Mean GR3.0 mmHgLVOT VTI0.11 m AIDAN (VMAX)3.7 cm2Al P1/2T335 msAVA (VTI) 3.7 cm2 Mitral Valve MV E Vmax78.6 cm/sDECEL Tmil372 ms MV A Vmax43.2 cm/sP 1/2 T72 ms E/A ratio1.8MVA (PHT)3.1 cm2 MR Max PG61 mmHg TDI E/E' Rhtcxv68.7E/E' Hwqutzr67.6 Medial E' Peak V4.20 cm/sLateral E' Peak V5.80 cm/s Tricuspid Valve TR Vmax2.7 m/s TR Peak GR30.1 mmHg Left Ventricle The left ventricle is severely dilated. Severe hypokinesis There is normal left ventricular wall thic kness. LVEF is 20-25%. Stage II diastolic dysfunction. Right Ventricle The right ventricle is normal size. The right ventricular systolic function is normal. Atria The left atrium is moderately dilated. The right atrium is moderately dilated. Aortic Valve The aortic valve is normal in structure and function. Mild aortic regurgitation. There is no aortic v alvular stenosis. Mitral Valve The mitral valve is normal in structure and function. Mitral regurgitation is mild. There is no elayne l valve stenosis. Tricuspid Valve The tricuspid valve is normal in structure and function. There is trace tricuspid valve regurgitation noted. Pulmonic Valve The pulmonary valve is normal in structure and function. There is no pulmonic valvular regurgitation. Great Vessels The aortic root is normal in size. The IVC is normal in size and collapses >50% with inspiration. Pericardium No pericardial effusion. Conclusion LVEF is 20-25%. Stage II diastolic dysfunction. There is normal left ventricular wall thickness. The left ventricle is severely dilated. Severe hypokinesis The left atrium is moderately dilated. The right atrium is moderately dilated. Mild aortic regurgitation. Mitral regurgitation is mild. No pericardial effusion. Mild pulmonary hypertension Study quality is adequate
== END | disposition home or self-care (01) ==
LOC: RAH 13:02
PROVIDERS: ATTEND Internal Medicine Cardiovascular Disease
DX: I08.0 Rheumatic disorders of both mitral and aortic valves (principal); I27.20 Pulmonary hypertension, unspecified; I50.9 Heart failure, unspecified
CPT/HCPCS: 93306